=== PATIENT | female | born 1960 | race Caucasian/White ===

== ENCOUNTER → 2022-02-08 | Outpatient (CLI) | payer MEDICARE ==
--- NOTE | 2022-02-10 21:02 | CT ---
EXAMINATION TYPE: CT pelvis w con CT DLP: 1938.50 mGycm, Automated exposure control for dose reduction was used. DATE OF EXAM: 02/08/2022 6:40 PM COMPARISON: None CLINICAL INDICATION:Female, 62 years old with history of N80.9 ENDOMETRIOSIS; Endometriosis and lower belly/pelvic pain TECHNIQUE: Standard CT of the pelvis following the administration of 100 cc of Isovue [address] material. Coronal and sagittal reformats were performed. FINDINGS: LOWER CHEST: Unremarkable ABDOMEN Partially visualized abdomen. LIVER: Diffusely hypoattenuating parenchyma. GALLBLADDER AND BILE DUCTS: The gallbladder is surgically absent. PANCREAS: Unremarkable. SPLEEN: Unremarkable. ADRENAL GLANDS: Unremarkable. KIDNEYS AND URETERS: No evidence of hydronephrosis or renal calculus. The ureters are unremarkable. PELVIS BLADDER: Unremarkable REPRODUCTIVE: No evidence of organizing fluid collection or endometrioma. ABDOMEN & PELVIS STOMACH AND BOWEL: Stomach and duodenum are unremarkable. Scattered diverticula are noted throughout the colon. No evidence of bowel obstruction. Appendix is normal. PERITONEUM: No evidence of pneumoperitoneum or free fluid. VASCULATURE: Mild atherosclerotic calcifications are present throughout the abdominal aorta and its b ranches. MUSCULOSKELETAL: No acute osseous abnormalities. Grade 1 anterolisthesis of L5 on S1. There is bilate ral spondylolysis. LYMPH NODES: No gross evidence for lymphadenopathy. SOFT TISSUE/ABDOMINAL WALL: Unremarkable IMPRESSION: 1. No evidence for acute intra-abdominal process or CT evidence for endometriosis. MRI is more sensi tive for endometriosis, consider follow-up as clinically indicated with MRI pelvis with IV contrast. 2. Colonic diverticulosis predominantly involving the sigmoid colon. 3. Grade 1 anterolisthesis of L5 on S1 with bilateral spondylolysis. 4. Hepatic steatosis.
== END | disposition home or self-care (01) ==
LOC: RADCTMAIN 16:37
PROVIDERS: ATTEND Pediatrics
DX: K76.0 Fatty (change of) liver, not elsewhere classified (principal); K57.30 Diverticulosis of large intestine without perforation or abscess without bleeding; M43.17 Spondylolisthesis, lumbosacral region
CPT/HCPCS: 72193; Q9967 ×2